=== PATIENT | female | born 1980 | race Two or more races ===

== ENCOUNTER 2019-09-17 18:38 | Inpatient (IN) | payer OTHER ==
[~2019-09-17] VITALS: Ht 167.6 cm; Wt 72.6 kg
[~2019-09-17 18:38] MED LIST: BUTALB-ACETAMI1 EAC2 PO; DICY20TA PO; EXJADE500 MG PO; FOLIC ACID1 MG; GLYCOTROL CAPS1 EACH; KETO10TA2 PO; MAALOX ADVANCE355 ML PO; PEPCID AC20 MG PO; PRENATAL + DHA1 EAC1; PROCARDIA90 MG/BLIS PO; THERALITH XR T1 EACH; TRAM1TAB98 PO; VITAMIN B12-FO1 EACH PO; ZOFRAN4 MG; [UNRECOGNIZED DRUG - OTHER]; [UNRECOGNIZED DRUG - REMARK]
[2019-09-17] MEDS ORDERED: EXJADE500 MG PO (19:13)
[2019-09-17] MEDS ORDERED: DIALYVITE 800-1 EACH PO (19:14)
[2019-09-22] MEDS ORDERED: DEFERASIROX PO (11:39)
== END 2019-09-22 11:50 | disposition home or self-care (01) | DRG 812 ==
LOC: ER 18:38 → SEC-K 09-18 11:58 → SURG 09-18 11:58 → SEC-K 09-18 12:53 → SURG 09-18 20:48 → MEDI 09-18 20:48 → SURG 09-18 21:01
PROVIDERS: ADMIT Internal Medicine; ATTEND Internal Medicine
PROC: 4A12X4Z Monitoring of Cardiac Electrical Activity, External Approach (ICD-10-PCS; principal; 2019-09-18)
PROC: BW28ZZZ Computerized Tomography (CT Scan) of Head (ICD-10-PCS; 2019-09-18)
PROC: B246ZZZ Ultrasonography of Right and Left Heart (ICD-10-PCS; 2019-09-18)
PROC: B345ZZZ Ultrasonography of Bilateral Common Carotid Arteries (ICD-10-PCS; 2019-09-18)
PROC: BW38ZZZ Magnetic Resonance Imaging (MRI) of Head (ICD-10-PCS; 2019-09-19)
PROC: 30233N1 Transfusion of Nonautologous Red Blood Cells into Peripheral Vein, Percutaneous Approach (ICD-10-PCS; 2019-09-21)
DX: D56.1 Beta thalassemia (principal); E16.1 Other hypoglycemia; E83.111 Hemochromatosis due to repeated red blood cell transfusions; R55 Syncope and collapse
CPT/HCPCS: 70553

== ENCOUNTER → 2020-01-10 | Emergency (ER) | payer OTHER ==
[~2020-01-10] MED LIST changes: +DEFERASIROX PO; +DIALYVITE 800-1 EACH PO
== END | disposition left against medical advice (07) ==
LOC: ER 16:18
DX: Z53.20 Procedure and treatment not carried out because of patient's decision for unspecified reasons (principal)

== ENCOUNTER 2021-07-01 14:53 | Inpatient (IN) | payer OTHER ==
[~2021-07-01] VITALS: Ht 170.2 cm; Wt 68.0 kg
[2021-07-01] MEDS ORDERED: DEFERASIROX (16:23)
[2021-07-04] MEDS ORDERED: BUTALB-ACETAMI1 EAC2 PO (13:11)
[2021-07-04] MEDS ORDERED: HYDREA500 M1 PO (13:11)
[2021-07-04] MEDS ORDERED: DIALYVITE 800-1 EACH PO (13:12)
[2021-07-04] MEDS ORDERED: MILLIPRED5 MG PO (13:12)
== END 2021-07-04 14:44 | disposition home or self-care (01) | DRG 812 ==
LOC: SEC-K 14:53 → MEDJ 14:53 → SEC-K 15:18 → MEDJ 18:12
PROVIDERS: ADMIT Internal Medicine Hematology & Oncology; ATTEND Internal Medicine Hematology & Oncology
PROC: 30233N1 Transfusion of Nonautologous Red Blood Cells into Peripheral Vein, Percutaneous Approach (ICD-10-PCS; principal; 2021-07-03)
DX: D64.9 Anemia, unspecified (principal); D56.1 Beta thalassemia; E83.111 Hemochromatosis due to repeated red blood cell transfusions; D58.8 Other specified hereditary hemolytic anemias; E86.0 Dehydration; E87.8 Other disorders of electrolyte and fluid balance, not elsewhere classified; Z20.822 Contact with and (suspected) exposure to COVID-19

== ENCOUNTER 2022-06-05 13:45 | Inpatient (IN) | payer OTHER ==
[~2022-06-05] VITALS: Ht 170.2 cm; Wt 72.6 kg
[~2022-06-05 13:45] MED LIST changes: +DEFERASIROX; +HYDREA500 M1 PO; +MILLIPRED5 MG PO
[2022-06-05] MEDS ORDERED: DEFEROXAMINE (14:58)
[2022-06-05] MEDS ORDERED: REBLOZYL75 MG (14:58)
== END 2022-06-07 12:22 | disposition left against medical advice (07) | DRG 812 ==
LOC: ER 13:45 → MEDI 22:23
PROVIDERS: ADMIT Internal Medicine; ATTEND Internal Medicine
PROC: 30233N1 Transfusion of Nonautologous Red Blood Cells into Peripheral Vein, Percutaneous Approach (ICD-10-PCS; principal; 2022-06-05)
DX: D64.9 Anemia, unspecified (principal); E83.111 Hemochromatosis due to repeated red blood cell transfusions; D56.1 Beta thalassemia

== ENCOUNTER 2024-01-16 15:21 | Inpatient (IN) | payer OTHER ==
[~2024-01-16] VITALS: Ht 170.2 cm; Wt 99.8 kg
[~2024-01-16 15:21] MED LIST changes: +DEFEROXAMINE; +REBLOZYL75 MG
[2024-01-16] MEDS ORDERED: 0.9 % SODIUM CHLORIDE 1,000 ML IV STA (16:19)
[2024-01-16] MEDS ORDERED: HYDROXYUREA500 MG PO (16:21)
[2024-01-16] MEDS ORDERED: [UNRECOGNIZED DRUG - OTHER] SQ (16:21)
[2024-01-16] MEDS ORDERED: DEFEROXAMINE IM (16:21)
[2024-01-16] MEDS ORDERED: DEFERASIROX PO (16:22)
--- NOTE | 2024-01-16 16:24 | NUR ---
SE RECIBE PTE ALERTA ORIENATDA X3.PTE REFIERE TENER DEBILIDAD,MAREOS,PRSION EN LA RONNIE DESDE EL ANTHONY DE PHILIPP.PTE REFIERE NO PRESENTAR VOMITOS,NAUSEAS AL MOMENTO.PTE DE DR.MORALES SHEETS.
--- NOTE | 2024-01-16 16:31 | NUR ---
PTE FEMENINA EVALUADA POR . SE ORIENTA SOBRE ORDENE WELDER TOOL AND DIE TX REFIERE COMPRENDER. SE COLECTAN MUESTRAS DE LABORATORIOS Y SE CANALIZA VENA BAJO MEDIDAS ASEPTICAS. SE ADMINISTRAN LIQUIDOS INTRAVENOSOS BEHZAD ORDEN MEDICA.
--- NOTE | 2024-01-16 16:35 | NUR ---
SE COLECTAN TUBOS PILOTOS, BAJO MEDIDAS ASEPTICAS. SE REQUIZAN DOS UNIDADES DE PRBC'S PARA TRANSFUNDIR, BEHZAD ORDEN MEDICA. SE ENTREGAN TUBOS A LAB[facility]ATORIO [facility].
[2024-01-16 16:43] LABS: HEMATOCRIT 28.7 % (36.0-45.00); MEAN CELL VOLUME 77.2 fL (80.00-100.00); MEAN CORPUSCULAR HGB CONC 29.9 g/dl (32.0-36.0); RED BLOOD COUNT 3.72 M/uL (4.00-6.00)
[2024-01-16 16:44] LABS: ALBUMIN 3.8 gm/dL (3.4-5.0); BILIRUBIN TOTAL 1.39 mg/dL (0.3-1.2); CALCIUM 9.4 mg/dL (8.5-10.1); CREATININE SERUM 0.7 mg/dL (0.55-1.02); GFR 90.9; POTASSIUM 4.65 mEq/L (3.5-5.1); TOTAL PROTEIN 8.8 gm/dL (6.4-8.2)
[2024-01-16 16:50] LABS: HEMOGLOBIN 8.6 g/dL (12.0-15.00); MEAN CORPUSCULAR HEMOGLOBIN 23.1 pg (27.00-32.0); PLATELET COUNT 818 K/uL (150-450); RED CELL DISTRIBUTION WIDTH 28.1 % (11.5-14.5)
[2024-01-16] MEDS ORDERED: KETOROLAC TROMETHAMINE 30 MG VIAL IV STA (17:01)
[2024-01-16] MEDS ORDERED: DEXAMETHASONE 4 MG TABLET PO ONE (18:30)
[2024-01-16] MEDS ORDERED: 0.9 % SODIUM CHLORIDE 1,000 ML IV SCH (18:45)
[2024-01-16] MEDS ORDERED: VANCOMYCIN HCL 1,000 MG VIAL IV SCH (18:46)
[2024-01-16] MEDS ORDERED: PIPERACILLIN/TAZOBACTAM SODIUM 3.375 GM in DEXTROSE 5 % IN WATER 100 ML IV SCH (18:47)
[2024-01-16] MEDS ORDERED: PANTOPRAZOLE SODIUM 40 MG/VIAL VIAL IV SCH (18:47)
[2024-01-16] MEDS ORDERED: HYDROXYUREA 500 MG CAP PO SCH (18:48)
[2024-01-16] MEDS ORDERED: ACETAMINOPHEN 500 MG GEL..CAP PO PRN (19:00)
[2024-01-16 20:04] LABS: PH,URINE 5.5 (5.0-8.0); URINE APPEARANCE Clear; URINE BILIRRUBIN Negative (NEGATIVE); URINE BLOOD Small; URINE COLOR Dark Yellow; URINE GLUCOSE Negative (NEGATIVE); URINE KETONE Negative (NEGATIVE); URINE LEUKOCYTE Negative; URINE NITRATE Negative; URINE PROTEIN 30 (NEGATIVE)
[2024-01-16 20:05] LABS: URINE BACTERIA 216.6 uL (0.0-1933); URINE EPITHELIAL CELLS 20.5 uL (0.0-38.8); URINE RBC 22.5 uL (0.0-20.8); URINE WBC 15.7 uL (0.0-23.2)
[2024-01-16 20:12] LABS: URINE CAST 0.45 uL (0.0-1.40)
[2024-01-16 20:19] LABS: BILIRUBIN TOTAL 1.4 mg/dL (0.3-1.2)
[2024-01-16 20:20] LABS: INR 0.99; PARTIAL THROMBOPLASTIN TIME 23.3 SECONDS (22.0-34.0); PROTHROMBIN TIME 10.3 SECONDS (9.0-11.5)
[2024-01-16 20:27] LABS: BILIRUBIN,CONJUGATED 0.22 mg/dL (0.0-0.2); BILIRUBIN,UNCONJUGATED 1.18 mg/dL (0.0-0.6); C-REACTIVE PROTEIN 4.24 MG/DL (0.00-0.29)
[2024-01-16 22:00] VITALS: BP 110/68; O2SAT 100
[2024-01-16] MEDS ORDERED: MORPHINE SULFATE 2 MG/ML CARTRIDGE IV STA (22:16)
[2024-01-17] MEDS ORDERED: MORPHINE SULFATE 2 MG/ML CARTRIDGE IV SCH
[2024-01-17 00:30] VITALS: BP 93/53; O2SAT 95
[2024-01-17 07:29] VITALS: BP 115/69; O2SAT 100
[2024-01-17] MEDS ORDERED: LACTOBACILLUS ACIDOPHILUS 1 CAP CAP PO SCH (09:00)
[2024-01-17 10:19] LABS: ALBUMIN 3.2 gm/dL (3.4-5.0); BILIRUBIN TOTAL 2.38 mg/dL (0.3-1.2); CALCIUM 8.2 mg/dL (8.5-10.1); CREATININE SERUM 0.71 mg/dL (0.55-1.02); GFR 89.43; GLOBULINA 4.6 G/DL (2.4-3.5); POTASSIUM 3.28 mEq/L (3.5-5.1); TOTAL PROTEIN 7.8 gm/dL (6.4-8.2); TSH 0.916 uIU/mL (0.358-3.74)
[2024-01-17 10:20] LABS: PLATELET ESTIMATE INCREASED (NORMAL)
[2024-01-17] MEDS ORDERED: DEFEROXAMINE MESYLATE 500 MG VIAL IV SCH (11:00)
[2024-01-17] MEDS ORDERED: KETOROLAC TROMETHAMINE 60 MG VIAL IM ONE (13:15)
[2024-01-17 14:20] VITALS: BP 93/67; O2SAT 100
[2024-01-17] MEDS ORDERED: POTASSIUM CHLORIDE 20MEQ/100ML H2O PB IV NR (14:30)
[2024-01-17 16:00] VITALS: BP 104/70; O2SAT 100
[2024-01-17] MEDS ORDERED: KETOROLAC TROMETHAMINE 30 MG VIAL IV PRN (16:00)
[2024-01-17] MEDS ORDERED: PIPERACILLIN/TAZOBACTAM SODIUM 4.5 GM in 0.9 % SODIUM CHLORIDE 100 ML IV SCH (18:00)
[2024-01-17 20:00] VITALS: BP 121/75; O2SAT 100
[2024-01-17 23:11] VITALS: BP 95/59
[2024-01-18 00:19] LABS: HEMATOCRIT 32.7 % (36.0-45.00); HEMOGLOBIN 10.2 g/dL (12.0-15.00); MEAN CELL VOLUME 79.8 fL (80.00-100.00); MEAN CORPUSCULAR HEMOGLOBIN 24.9 pg (27.00-32.0); MEAN CORPUSCULAR HGB CONC 31.2 g/dl (32.0-36.0); PLATELET COUNT 623 K/uL (150-450)
[2024-01-18 04:00] VITALS: BP 99/57
[2024-01-18 07:03] LABS: ALBUMIN 2.8 gm/dL (3.4-5.0); CALCIUM 8.5 mg/dL (8.5-10.1); CREATININE SERUM 0.6 mg/dL (0.55-1.02); GFR 108.6; MAGNESIUM 1.8 mg/dL (1.8-2.4); PHOSPHOROUS 2.7 mg/dL (2.5-4.9); POTASSIUM 3.46 mEq/L (3.5-5.1)
[2024-01-18 07:37] VITALS: BP 109/71; O2SAT 100
[2024-01-18 12:00] VITALS: BP 113/74; O2SAT 97
[2024-01-18 15:21] VITALS: BP 106/68
[2024-01-18] MEDS ORDERED: HYDROXYUREA 500 MG CAP PO SCH (17:00)
[2024-01-18 20:00] VITALS: BP 107/76; O2SAT 97
[2024-01-18] MEDS ORDERED: POTASSIUM CHLORIDE IN WATER 100 ML IV ONE (21:30)
[2024-01-18 23:29] VITALS: BP 122/79; O2SAT 100
[2024-01-19 06:45] LABS: MEAN CELL VOLUME 78.1 fL (80.00-100.00); MEAN CORPUSCULAR HGB CONC 33.1 g/dl (32.0-36.0); PLATELET COUNT 494 K/uL (150-450); RED BLOOD COUNT 2.99 M/uL (4.00-6.00)
[2024-01-19 07:06] LABS: ALBUMIN 2.8 gm/dL (3.4-5.0); CALCIUM 8.4 mg/dL (8.5-10.1); CREATININE SERUM 0.45 mg/dL (0.55-1.02); GFR 151.36; MAGNESIUM 1.8 mg/dL (1.8-2.4); PHOSPHOROUS 2.4 mg/dL (2.5-4.9); POTASSIUM 3.79 mEq/L (3.5-5.1)
[2024-01-19 07:07] LABS: EBV EARLY AG IGG < 9.0 U/mL (0.0-8.9); vca igm ab < 36.0 U/mL (0.0-35.9)
[2024-01-19 07:19] VITALS: BP 117/80; O2SAT 100
[2024-01-19 08:12] LABS: HEMATOCRIT 23.4 % (36.0-45.00); HEMOGLOBIN 7.7 g/dL (12.0-15.00); MEAN CORPUSCULAR HEMOGLOBIN 25.7 pg (27.00-32.0); RED CELL DISTRIBUTION WIDTH 26.4 % (11.5-14.5)
[2024-01-19] MEDS ORDERED: FUROsemide 20 MG/2 ML VIAL IV PRN (08:15)
[2024-01-19] MEDS ORDERED: METHYLPREDNISOLONE SOD SUCC 40 MG VIAL IV SCH (08:15)
[2024-01-19 12:00] VITALS: BP 127/89; O2SAT 100
[2024-01-19 15:37] VITALS: BP 131/89
[2024-01-19 20:00] VITALS: BP 140/71; O2SAT 97
[2024-01-19 21:47] VITALS: BP 133/87; O2SAT 97
[2024-01-19 23:07] VITALS: BP 115/92; O2SAT 97
[2024-01-20 04:24] VITALS: BP 126/87; O2SAT 90
[2024-01-20 07:33] VITALS: BP 148/88; O2SAT 94
[2024-01-20 10:39] LABS: HEMATOCRIT 32.7 % (36.0-45.00); HEMOGLOBIN 10.8 g/dL (12.0-15.00); MEAN CELL VOLUME 79.9 fL (80.00-100.00); MEAN CORPUSCULAR HEMOGLOBIN 26.5 pg (27.00-32.0); MEAN CORPUSCULAR HGB CONC 33.1 g/dl (32.0-36.0); PLATELET COUNT 565 K/uL (150-450); RED BLOOD COUNT 4.09 M/uL (4.00-6.00); RED CELL DISTRIBUTION WIDTH 24.2 % (11.5-14.5)
[2024-01-20 15:14] VITALS: BP 136/84; O2SAT 99
[2024-01-20 21:49] VITALS: O2SAT 97
[2024-01-21 01:35] VITALS: BP 122/77; O2SAT 93
[2024-01-21 05:00] VITALS: O2SAT 90
[2024-01-21 08:43] VITALS: BP 135/87
[2024-01-21] MEDS ORDERED: PANTOPRAZOLE SODIUM 40 MG TABLET.DR PO SCH (09:00)
[2024-01-21 09:10] VITALS: O2SAT 95
[2024-01-21 12:34] VITALS: O2SAT 92
== END 2024-01-21 14:57 | disposition home or self-care (01) | DRG 872 ==
LOC: ER 15:21 → ICU-2 19:08 → ICU 19:08 → MEDJ 01-20 18:24
PROVIDERS: Emergency Medicine; General Practice; Internal Medicine Hematology & Oncology; Internal Medicine Infectious Disease; ADMIT Internal Medicine; ATTEND Internal Medicine
PROC: BW24ZZZ Computerized Tomography (CT Scan) of Chest and Abdomen (ICD-10-PCS; 2024-01-16)
PROC: 30273N1 Transfusion of Nonautologous Red Blood Cells into Products of Conception, Circulatory, Percutaneous Approach (ICD-10-PCS; 2024-01-17)
PROC: BW2FYZZ Computerized Tomography (CT Scan) of Neck using Other Contrast (ICD-10-PCS; 2024-01-17)
PROC: 02HV33Z Insertion of Infusion Device into Superior Vena Cava, Percutaneous Approach (ICD-10-PCS; 2024-01-18)
PROC: 0CJS8ZZ Inspection of Larynx, Via Natural or Artificial Opening Endoscopic (ICD-10-PCS; principal; 2024-01-19)
PROC: 4A12X4Z Monitoring of Cardiac Electrical Activity, External Approach (ICD-10-PCS; 2024-01-20)
DX: A41.9 Sepsis, unspecified organism (principal); Q89.01 Asplenia (congenital); D58.9 Hereditary hemolytic anemia, unspecified; D56.1 Beta thalassemia; J35.03 Chronic tonsillitis and adenoiditis; D72.823 Leukemoid reaction; I95.9 Hypotension, unspecified; K76.9 Liver disease, unspecified; E83.119 Hemochromatosis, unspecified; R13.10 Dysphagia, unspecified; R59.1 Generalized enlarged lymph nodes

== ENCOUNTER 2024-02-28 13:14 | Inpatient (IN) | payer OTHER ==
[~2024-02-28] VITALS: Ht 170.2 cm; Wt 65.8 kg
[~2024-02-28 13:14] MED LIST changes: +DEFEROXAMINE IM; +HYDROXYUREA500 MG PO; +[UNRECOGNIZED DRUG - OTHER] SQ
[2024-02-28 14:10] LABS: PH,URINE 5.5 (5.0-8.0); URINE APPEARANCE Cloudy; URINE BILIRRUBIN Negative (NEGATIVE); URINE BLOOD Moderate; URINE COLOR Yellow; URINE GLUCOSE Negative (NEGATIVE); URINE KETONE Negative (NEGATIVE); URINE LEUKOCYTE Large; URINE NITRATE Negative; URINE PROTEIN 30 (NEGATIVE); URINE UROBILINOGEN 0.2 E.U./dl
[2024-02-28 14:13] LABS: URINE BACTERIA 1171.7 uL (0.0-1933); URINE EPITHELIAL CELLS 46.8 uL (0.0-38.8); URINE RBC 340.1 uL (0.0-20.8); URINE WBC 667.5 uL (0.0-23.2)
[2024-02-28 14:36] LABS: HEMATOCRIT 28.9 % (36.0-45.00); HEMOGLOBIN 9.3 g/dL (12.0-15.00); MEAN CORPUSCULAR HEMOGLOBIN 25.4 pg (27.00-32.0); MEAN CORPUSCULAR HGB CONC 32.1 g/dl (32.0-36.0); PLATELET COUNT 656 K/uL (150-450); RED BLOOD COUNT 3.66 M/uL (4.00-6.00)
[2024-02-28 14:37] LABS: RED CELL DISTRIBUTION WIDTH 26.6 % (11.5-14.5)
[2024-02-28 14:46] LABS: ALBUMIN 3.8 gm/dL (3.4-5.0); BILIRUBIN TOTAL 0.74 mg/dL (0.3-1.2); CALCIUM 10.1 mg/dL (8.5-10.1); CREATININE SERUM 0.77 mg/dL (0.55-1.02); GFR 81.43; GLOBULINA 4.7 G/DL (2.4-3.5); POTASSIUM 4.17 mEq/L (3.5-5.1); TOTAL PROTEIN 8.5 gm/dL (6.4-8.2); TSH 2.04 uIU/mL (0.358-3.74)
[2024-02-28 14:50] LABS: INR 0.98; PARTIAL THROMBOPLASTIN TIME 25.8 SECONDS (22.0-34.0); PROTHROMBIN TIME 10.7 SECONDS (9.0-11.5)
[2024-02-28] MEDS ORDERED: 0.9 % SODIUM CHLORIDE 1,000 ML IV SCH (15:30)
[2024-02-28] MEDS ORDERED: ONDANSETRON HCL 2 MG/ML VIAL IV PRN (15:30)
[2024-02-28] MEDS ORDERED: ACETAMINOPHEN 325 MG TABLET PO PRN (15:30)
[2024-02-28 16:00] VITALS: BP 117/60; O2SAT 99
[2024-02-28] MEDS ORDERED: METHYLPREDNISOLONE SOD SUCC 40 MG VIAL IV SCH (17:00)
[2024-02-28] MEDS ORDERED: HYDROXYUREA 500 MG CAP PO SCH (17:00)
[2024-02-28] MEDS ORDERED: MULTIVIT INFUSN,ADULT 4,VIT K 10 ML VIAL IV SCH (17:00)
[2024-02-28] MEDS ORDERED: FAMOTIDINE/PF 20 MG/2 ML VIAL IV SCH (21:00)
[2024-02-28] MEDS ORDERED: CEFTRIAXONE SODIUM 1,000 MG in DEXTROSE 5 % IN WATER 100 ML IV SCH (21:00)
[2024-02-28] MEDS ORDERED: CEFTRIAXONE SODIUM 1,000 MG VIAL IV SCH (21:00)
[2024-02-28] MEDS ORDERED: DEFEROXAMINE MESYLATE 500 MG VIAL IV SCH (21:00)
[2024-02-29] VITALS: BP 89/59; O2SAT 96
[2024-02-29 04:40] VITALS: BP 100/67
[2024-02-29 08:23] VITALS: BP 105/71; O2SAT 97
[2024-02-29 15:55] VITALS: BP 93/61; O2SAT 97
[2024-03-01 00:30] VITALS: BP 96/56; O2SAT 98
[2024-03-01 08:22] VITALS: BP 106/70; O2SAT 99
[2024-03-01 08:22] LABS: HEMATOCRIT 28.6 % (36.0-45.00); MEAN CELL VOLUME 79.4 fL (80.00-100.00); MEAN CORPUSCULAR HGB CONC 31.6 g/dl (32.0-36.0)
[2024-03-01 08:23] LABS: PLATELET COUNT 692 K/uL (150-450); RED CELL DISTRIBUTION WIDTH 26.3 % (11.5-14.5)
[2024-03-01 08:57] LABS: ALBUMIN 3.7 gm/dL (3.4-5.0); BILIRUBIN TOTAL 0.78 mg/dL (0.3-1.2); CALCIUM 10.5 mg/dL (8.5-10.1); CREATININE SERUM 0.58 mg/dL (0.55-1.02); GFR 112.93; GLOBULINA 5.1 G/DL (2.4-3.5); POTASSIUM 4.62 mEq/L (3.5-5.1); TOTAL PROTEIN 8.8 gm/dL (6.4-8.2)
[2024-03-01 08:59] LABS: FERRITIN 1788.6 NG/ML (8-252)
[2024-03-01] MEDS ORDERED: METHYLPREDNISOLONE SOD SUCC 40 MG VIAL IV SCH (09:00)
[2024-03-01 17:00] VITALS: BP 105/66; O2SAT 96
[2024-03-02] VITALS: BP 90/52; O2SAT 97
[2024-03-02 08:00] VITALS: BP 106/71; O2SAT 99
[2024-03-02 16:13] VITALS: BP 101/58; O2SAT 97
[2024-03-03 00:29] VITALS: BP 114/78; O2SAT 98
[2024-03-03 06:33] LABS: PH,URINE 5.5 (5.0-8.0); URINE APPEARANCE Clear; URINE BILIRRUBIN Negative (NEGATIVE); URINE BLOOD Trace; URINE COLOR Yellow; URINE GLUCOSE Negative (NEGATIVE); URINE KETONE Negative (NEGATIVE); URINE LEUKOCYTE Trace; URINE NITRATE Negative; URINE PROTEIN Negative (NEGATIVE); URINE UROBILINOGEN 0.2 E.U./dl
[2024-03-03 06:36] LABS: URINE BACTERIA 8.8 uL (0.0-1933); URINE EPITHELIAL CELLS 28.6 uL (0.0-38.8); URINE RBC 582.3 uL (0.0-20.8); URINE WBC 13.4 uL (0.0-23.2)
[2024-03-03 06:59] LABS: URINE CAST 0.15 uL (0.0-1.40)
[2024-03-03 06:59] LABS: HEMATOCRIT 28.3 % (36.0-45.00); HEMOGLOBIN 9.3 g/dL (12.0-15.00); MEAN CELL VOLUME 77.3 fL (80.00-100.00); MEAN CORPUSCULAR HEMOGLOBIN 25.4 pg (27.00-32.0); MEAN CORPUSCULAR HGB CONC 32.9 g/dl (32.0-36.0); PLATELET COUNT 635 K/uL (150-450); RED BLOOD COUNT 3.66 M/uL (4.00-6.00)
[2024-03-03 07:25] LABS: CALCIUM 9.7 mg/dL (8.5-10.1); CREATININE SERUM 0.6 mg/dL (0.55-1.02); GFR 108.6; POTASSIUM 4.62 mEq/L (3.5-5.1); RED CELL DISTRIBUTION WIDTH 26.8 % (11.5-14.5)
[2024-03-03 08:00] VITALS: BP 122/64; O2SAT 100
[2024-03-03] MEDS ORDERED: METHYLPREDNISOLONE SOD SUCC 40 MG VIAL IV SCH (09:00)
[2024-03-03] MEDS ORDERED: FAMOtidine 20 MG TABLET PO SCH (17:00)
[2024-03-03 17:10] VITALS: BP 121/76; O2SAT 97
[2024-03-04 00:43] VITALS: BP 107/67; O2SAT 96
[2024-03-04 08:30] VITALS: BP 105/65; O2SAT 100
[2024-03-04] MEDS ORDERED: CLOTRIMAZOLE 45 GM TUBE VAG STA (10:51)
[2024-03-04] MEDS ORDERED: FLUCONAZOLE 150 MG TABLET PO NR (11:00)
[2024-03-04] MEDS ORDERED: CLOTRIMAZOLE 45 GM TUBE VAG SCH (11:15)
[2024-03-04] MEDS ORDERED: PHENAZOPYRIDINE HCL 100 MG TABLET PO SCH (13:00)
[2024-03-04 16:00] VITALS: BP 111/61; O2SAT 94
[2024-03-05 01:11] VITALS: BP 94/51; O2SAT 96
[2024-03-05 08:00] VITALS: BP 124/80; O2SAT 100
[2024-03-05 16:42] VITALS: BP 91/63; O2SAT 95
[2024-03-05] MEDS ORDERED: GYNE-LOTRIMIN45 GM VAG (17:23)
[2024-03-05] MEDS ORDERED: HYDREA500 M1 PO (17:23)
[2024-03-05] MEDS ORDERED: FAMOTIDINE20 MG PO (17:23)
[2024-03-05] MEDS ORDERED: PYRIDIUM100 M1 PO (17:23)
[2024-03-06] MEDS ORDERED: METHYLPREDNISOLONE SOD SUCC 40 MG VIAL IV SCH (09:00)
== END 2024-03-05 20:10 | disposition home or self-care (01) | DRG 690 ==
LOC: SURH 13:14
PROVIDERS: ADMIT Internal Medicine Hematology & Oncology; ATTEND Internal Medicine Hematology & Oncology
PROC: 02HV33Z Insertion of Infusion Device into Superior Vena Cava, Percutaneous Approach (ICD-10-PCS; principal; 2024-03-01)
DX: N39.0 Urinary tract infection, site not specified (principal); N76.0 Acute vaginitis; B95.2 Enterococcus as the cause of diseases classified elsewhere; D56.1 Beta thalassemia; E83.118 Other hemochromatosis; E83.111 Hemochromatosis due to repeated red blood cell transfusions; K76.9 Liver disease, unspecified; B37.31 Acute candidiasis of vulva and vagina
CPT/HCPCS: 240

== ENCOUNTER 2025-01-11 15:32 | Inpatient (IN) | payer OTHER ==
[~2025-01-11] VITALS: Ht 170.2 cm; Wt 68.0 kg
[~2025-01-11 15:32] MED LIST changes: +FAMOTIDINE20 MG PO; +GYNE-LOTRIMIN45 GM VAG; +PYRIDIUM100 M1 PO
[2025-01-11 15:59] LABS: BASO % 1.4 % (0.1-1.2); EOS # 0.17 (0.04-0.54); EOS % 1.2 % (0.7-7.0); LYMPH # 2.12 (1.18-3.74); LYMPH % 15.6 % (19.3-53.1); MEAN PLATELET VOLUME 9.50 fl (9.4-12.4); MONO # 1.44 (0.24-0.82); MONO % 10.6 % (4.7-12.5); NEUT # 9.57 (1.56-6.13); NEUT % 70.2 % (34.0-71.1)
[2025-01-11 16:00] LABS: RED CELL DISTRIBUTION WIDTH 28.5 % (11.6-14.4); URINE APPEARANCE Clear; URINE BILIRRUBIN Negative (NEGATIVE); URINE BLOOD Moderate; URINE COLOR Yellow; URINE GLUCOSE Negative (NEGATIVE); URINE KETONE Negative (NEGATIVE); URINE LEUKOCYTE Moderate; URINE NITRATE Negative; URINE UROBILINOGEN 0.2 E.U./dl
[2025-01-11 16:03] LABS: URINE BACTERIA 32.3 uL (0.0-1933); URINE EPITHELIAL CELLS 14.3 uL (0.0-38.8); URINE RBC 38.4 uL (0.0-20.8); URINE WBC 105.8 uL (0.0-23.2)
[2025-01-11 16:09] LABS: ERYTHROCYTE SEDIMENTATION RATE 4 mm/hr (0-20)
[2025-01-11 16:24] LABS: URINE CAST 0.29 uL (0.0-1.40); URINE PROTEIN 100 (NEGATIVE)
[2025-01-11 16:26] LABS: ALT/SGPT 18.0 U/L (12-78); AST/SGOT 18.0 U/L (15-37); BILIRUBIN TOTAL 1.05 mg/dL (0.3-1.2); BUN CREA RATIO 29.0 (7.0-25.0); CREATININE SERUM 0.51 mg/dL (0.55-1.02); GFR 130.41; GLOBULINA 3.8 G/DL (2.4-3.5); GLUCOSE FASTING 123.0 mg/dL (65-100); LDH 247.0 U/L (84-246); OSMOLALITY SERUM 282.0 MOSM/KG (275-295)
[2025-01-11 16:27] LABS: INR 1.03
[2025-01-11 16:33] LABS: LYMPHOCYTE MAN 14.0 %; MONOCYTE MAN 9.0 %; MYELOCYTE 3.0 %; NEUTROPHILS MAN 69.0 %
[2025-01-11] MEDS ORDERED: METHYLPREDNISOLONE SOD SUCC 125 MG VIAL IV STA (16:40)
[2025-01-11] MEDS ORDERED: RINGERS SOLUTION,LACTATED 1,000 ML IV SCH (16:45)
[2025-01-11] MEDS ORDERED: AMINO ACIDS/PROTEIN HYDROLYS 30 ML BLIST.PACK PO SCH (17:00)
[2025-01-11] MEDS ORDERED: HYDROXYUREA 500 MG CAP PO SCH (17:00)
[2025-01-11] MEDS ORDERED: FOLIC ACID 1 MG TABLET PO SCH (17:00)
[2025-01-11] MEDS ORDERED: FAMOTIDINE/PF 20 MG/2 ML VIAL IV PUSH SCH (21:00)
[2025-01-11] MEDS ORDERED: DEFEROXAMINE MESYLATE 500 MG VIAL IV SCH (21:00)
[2025-01-12 02:15] VITALS: BP 108/74; O2SAT 94
[2025-01-12 09:55] VITALS: BP 105/69; O2SAT 95
[2025-01-12] MEDS ORDERED: BUTALB/ACETAMINOPHEN/CAFFEINE 1 TAB TABLET PO STA (18:25)
[2025-01-12] MEDS ORDERED: BUTALB/ACETAMINOPHEN/CAFFEINE 1 TAB TABLET PO PRN (18:30)
[2025-01-12 18:35] VITALS: BP 116/75; O2SAT 98
[2025-01-12] MEDS ORDERED: METHYLPREDNISOLONE SOD SUCC 40 MG VIAL IV SCH ×2 (21:00)
[2025-01-13 01:36] VITALS: BP 112/71; O2SAT 94
[2025-01-13 07:37] LABS: BASO % 0.5 % (0.1-1.2); EOS # 0.08 (0.04-0.54); EOS % 0.5 % (0.7-7.0); LYMPH # 1.84 (1.18-3.74); LYMPH % 11.2 % (19.3-53.1); MEAN PLATELET VOLUME 10.40 fl (9.4-12.4); MONO # 0.96 (0.24-0.82); MONO % 5.9 % (4.7-12.5); NEUT # 13.25 (1.56-6.13); NEUT % 80.9 % (34.0-71.1)
[2025-01-13 08:04] LABS: ALT/SGPT 16.0 U/L (12-78); AST/SGOT 16.0 U/L (15-37); BILIRUBIN TOTAL 1.18 mg/dL (0.3-1.2); BUN CREA RATIO 40.0 (7.0-25.0); CREATININE SERUM 0.43 mg/dL (0.55-1.02); GFR 158.79; GLOBULINA 3.9 G/DL (2.4-3.5); GLUCOSE FASTING 83.0 mg/dL (65-100); LDH 235.0 U/L (84-246); OSMOLALITY SERUM 280.0 MOSM/KG (275-295)
[2025-01-13 08:12] LABS: RED CELL DISTRIBUTION WIDTH 26.6 % (11.6-14.4)
[2025-01-13 10:07] VITALS: BP 112/73; O2SAT 94
[2025-01-13 13:02] LABS: ERYTHROCYTE SEDIMENTATION RATE 2 mm/hr (0-20)
[2025-01-13 17:20] VITALS: BP 122/77; O2SAT 96
[2025-01-14 02:04] VITALS: BP 134/79; O2SAT 94
[2025-01-14 09:32] VITALS: BP 143/78; O2SAT 95
[2025-01-14 11:08] LABS: BASO % 0.5 % (0.1-1.2); EOS # 0.30 (0.04-0.54); EOS % 1.9 % (0.7-7.0); LYMPH # 1.24 (1.18-3.74); LYMPH % 8.0 % (19.3-53.1); MEAN PLATELET VOLUME 10.80 fl (9.4-12.4); MONO # 1.23 (0.24-0.82); MONO % 8.0 % (4.7-12.5); NEUT # 12.31 (1.56-6.13); NEUT % 79.9 % (34.0-71.1); RED CELL DISTRIBUTION WIDTH 24.6 % (11.6-14.4)
[2025-01-14 11:59] LABS: BAND MAN 6.0 %; BASOPHIL MAN 0.0 %; EOSINOPHIL MAN 0.0 %; LYMPHOCYTE MAN 1.0 %; MONOCYTE MAN 9.0 %; NEUTROPHILS MAN 74.0 %
[2025-01-14 17:32] VITALS: BP 115/78; O2SAT 95
[2025-01-14] MEDS ORDERED: METHYLPREDNISOLONE SOD SUCC 40 MG VIAL IV SCH (21:00)
[2025-01-15 03:11] VITALS: BP 138/84; O2SAT 96
[2025-01-15 06:48] LABS: BASO % 0.2 % (0.1-1.2); EOS # 0.06 (0.04-0.54); EOS % 0.4 % (0.7-7.0); LYMPH # 3.05 (1.18-3.74); LYMPH % 18.8 % (19.3-53.1); MEAN PLATELET VOLUME 10.20 fl (9.4-12.4); MONO # 1.56 (0.24-0.82); MONO % 9.6 % (4.7-12.5); NEUT # 11.34 (1.56-6.13); NEUT % 69.8 % (34.0-71.1); RED CELL DISTRIBUTION WIDTH 24.4 % (11.6-14.4)
[2025-01-15 07:50] LABS: ALT/SGPT 18.0 U/L (12-78); AST/SGOT 18.0 U/L (15-37); BILIRUBIN TOTAL 0.99 mg/dL (0.3-1.2); BUN CREA RATIO 37.0 (7.0-25.0); CREATININE SERUM 0.52 mg/dL (0.55-1.02); GFR 127.52; GLOBULINA 3.5 G/DL (2.4-3.5); GLUCOSE FASTING 71.0 mg/dL (65-100); OSMOLALITY SERUM 276.0 MOSM/KG (275-295)
[2025-01-15 07:51] LABS: BAND MAN 4.0 %; LYMPHOCYTE MAN 8.0 %; MONOCYTE MAN 3.0 %; NEUTROPHILS MAN 72.0 %
[2025-01-15 09:20] VITALS: BP 127/82; O2SAT 95
== END 2025-01-15 09:50 | disposition home or self-care (01) | DRG 642 ==
LOC: MEDJ 15:32
PROVIDERS: ADMIT Internal Medicine Hematology & Oncology; ATTEND Internal Medicine Hematology & Oncology
PROC: 8E0ZXY6 Isolation (ICD-10-PCS; 2025-01-11)
PROC: 30233N1 Transfusion of Nonautologous Red Blood Cells into Peripheral Vein, Percutaneous Approach (ICD-10-PCS; principal; 2025-01-13)
DX: E83.111 Hemochromatosis due to repeated red blood cell transfusions (principal); D59.9 Acquired hemolytic anemia, unspecified; D61.82 Myelophthisis; D56.1 Beta thalassemia
CPT/HCPCS: 240